=== PATIENT | female | born 1995 | race Caucasian/White ===

== ENCOUNTER → 2017-07-02 | Outpatient (REF) | payer OTHER | LOC: M SFHCLERA 10:15 | PROVIDERS: ATTEND Nurse Practitioner Family | DX: J02.9 Acute pharyngitis, unspecified (principal) ==

== ENCOUNTER → 2018-02-09 | Outpatient (REF) | payer OTHER | LOC: M SFHCLERA 14:03 | DX: R50.9 Fever, unspecified (principal) ==

== ENCOUNTER → 2019-06-17 | Outpatient (CLI) | payer BC, OTHER ==
--- NOTE | 2019-06-17 14:46 | REP ---
REASON: Assess IUD. PRIORS: None. Transvesical and transvaginal imaging was obtained. The uterus measures 7.6 x 4.2 x 5.8 cm. The parenchymal echo pattern is within normal limits. The endometrial echo complex is unremarkable appearing measuring 7.0 mm in thickness. There is a subtle spicular reflection in the endometrial cavity consistent with an IUD. Right ovary measured 3.2 x 2.0 x 2.1 cm and is within normal limits. Left ovary measured 2.3 x 2.1 x 2.0 cm and is within normal limits. There is a small amount of free fluid in the cul-de-sac probably physiologic. Urinary bladder measures 12.0 x 9.0 x 10.0 cm. IMPRESSION: Pelvic ultrasonography is within normal limits. There is a spicular reflection in the endometrial cavity consistent with an IUD. Electronically Signed by Roni Bassett DO 06/17/2019 04:18 P
== END ==
LOC: M RAD 09:26
PROVIDERS: ATTEND Nurse Practitioner Family
DX: Z30.431 Encounter for routine checking of intrauterine contraceptive device (principal)

== ENCOUNTER → 2020-04-13 | Outpatient (REF) | payer OTHER ==
[2020-04-13 13:17] LABS: BASO % 0.3 % (0.0-1.0); EOS # 0.1 10^3/uL (0.0-0.5); EOS % 1.1 % (0.0-3.0); HEMATOCRIT 43.3 % (36.0-47.0); HEMOGLOBIN 14.8 g/dl (12.0-15.5); LYMPH # 2.8 10^3/uL (1.5-5.0); LYMPH % 37.9 % (24.0-44.0); MEAN CORPUSCULAR HEMOGLOBIN 31.6 pg (27.0-33.0); MEAN CORPUSCULAR HGB CONC 34.2 g/dl (32.0-36.5); MEAN CORPUSCULAR VOLUME 92.3 fl (80.0-96.0); MONO # 0.6 10^3/uL (0.0-0.8); MONO % 8.2 % (0.0-5.0); NEUTROPHILS # 3.9 10^3/uL (1.5-8.5); NEUTROPHILS % 52.4 % (36.0-66.0); PLATELET COUNT, AUTOMATED 307 10^3/uL (150-450); RED BLOOD COUNT 4.69 10^6/uL (4.00-5.40); WHITE BLOOD COUNT 7.4 10^3/uL (4.0-10.0)
[2020-04-13 13:43] LABS: ALBUMIN 4.3 GM/DL (3.2-5.2); ALT/SGPT 22 U/L (12-78); BILIRUBIN,TOTAL 0.6 MG/DL (0.2-1.0); BLOOD UREA NITROGEN 12 MG/DL (7-18); CALCIUM LEVEL 9.6 MG/DL (8.5-10.1); CARBON DIOXIDE LEVEL 28 MEQ/L (21-32); CHLORIDE LEVEL 109 MEQ/L (98-107); CREATININE FOR GFR 0.84 MG/DL (0.55-1.30); FREE T4 1.11 NG/DL (0.76-1.46); GLOMERULAR FILTRATION RATE > 60.0 (>60); GLUCOSE, FASTING 85 MG/DL (70-100); POTASSIUM SERUM 4.1 MEQ/L (3.5-5.1); SODIUM LEVEL 138 MEQ/L (136-145); THYROID STIMULATING HORMONE 0.832 uIU/ML (0.358-3.740); TOTAL PROTEIN 7.6 GM/DL (6.4-8.2)
== END ==
LOC: M WUC 11:35
PROVIDERS: ATTEND Family Medicine
DX: F32.9 Major depressive disorder, single episode, unspecified (principal)

== ENCOUNTER → 2024-05-19 | Outpatient (REF) | payer BC | LOC: M LAB REF 16:51 | PROVIDERS: ATTEND Nurse Practitioner Family | DX: J06.9 Acute upper respiratory infection, unspecified (principal) ==